=== PATIENT | male | born 1955 | race Caucasian/White ===

== ENCOUNTER 2021-06-18 06:35 | Inpatient (IN) | payer BC ==
[2021-06-18] MEDS ORDERED: Povidone-Iodine 10% Soln 118.25 ML Bottle ONE (07:04)
[2021-06-18] MEDS: Nozin Nasal Sanitizer NASBOTH SCH ×3 (07:10→21:58)
[2021-06-18] MEDS ORDERED: Lactated Ringers 1,000 ML IV SCH (07:30)
[2021-06-18] MEDS ORDERED: Midazolam 1 MG/ML 2 ML SDV ONE (07:38)
[2021-06-18] MEDS ORDERED: fentaNYL 100 MCG/2 ML SDV ONE ×2 (07:38→09:19)
[2021-06-18] MEDS ORDERED: Propofol 200 MG/20 ML SDV ONE ×2 (07:38→09:40)
[2021-06-18] MEDS ORDERED: ceFAZolin 2 GM in Premix Bag 1 BAG IV ONE (08:30)
[2021-06-18] MEDS ORDERED: Lactated Ringers 1,000 ML ONE (08:53)
[2021-06-18] MEDS ORDERED: Ondansetron 4 MG/2 ML SDV IVPUSH PRN (10:38)
[2021-06-18] MEDS ORDERED: traMADol 50 MG Tab PO PRN (10:38)
[2021-06-18] MEDS ORDERED: ceFAZolin 1 GM in Sodium Chloride 0.9% 50 ML IV SCH (10:45)
[2021-06-18] MEDS ORDERED: Acetaminophen 325 MG Tab PO SCH ×2 (10:45→11:45)
--- NOTE | 2021-06-18 11:45 | OR ---
DATE OF PROCEDURE: 06/18/2021 SURGEON: Nickolas Weaver MD PREOPERATIVE DIAGNOSIS: Osteoarthritis, left knee. POSTOPERATIVE DIAGNOSIS: Osteoarthritis, left knee. PROCEDURE PERFORMED: Left total knee arthroplasty using Yoel Persona components with a size 9 femur, F tibia, 10 mm polyethylene, and 35 mm patella. [employer] SPECIALIST: JOEY Brower ANESTHESIA: Spinal with sedation. INDICATIONS: Mateusz is a very pleasant 66-year-old gentleman with a history of progressive pain in both knees over the past year. He has failed conservative treatment. X-rays reveal osteoarthritis, particularly in patellofemoral joints bilaterally. Presents for a total knee arthroplasty. Risks, benefits, potential complications of the procedure were discussed. DESCRIPTION OF PROCEDURE: After adequate anesthesia was obtained, patient was placed supine with a tourniquet about the left upper thigh. Left leg was prepped and draped in a sterile fashion. Leg was exsanguinated and tourniquet inflated to 250 mmHg pressure. Incision was made over the anterior aspect of the knee, carried down through the subcutaneous tissues, and hemostasis was obtained with electrocautery. Medial parapatellar arthrotomy was performed. Patella was partially everted, revealing complete loss of articular cartilage of patella with a large flap of delaminated cartilage superolaterally. The posterior aspect of the patella was resected with an oscillating saw. Medial release was performed, knee was flexed, and the intramedullary canal drilled. Intramedullary guide was placed and distal femur was cut. Extramedullary tibial guide was placed, aligned and secured to the tibia. The tibia was resected with an oscillating saw. Medial and lateral menisci were excised. The femur was sized to a 9 component. The 9 cutting jig was secured to the distal femur, femoral cuts were made. Jig was removed and the 9 trial was placed. Intercondylar notch was cut for a posterior cruciate-sacrificing component. Peg holes were drilled. Tibia was sized to an F component and a 10 mm insert was placed. The patella was sized to 35, drilled and the trial placed with excellent tracking. Trial components were removed. Tibial preparation was completed and the knee was thoroughly irrigated with the pulse lavage. Bone surfaces were dried. The patient did have fairly dense sclerotic bone and additional drill holes were made in the tibial plateau for cement penetration. Components were cemented in place, excess cement was removed, and the knee was held in full extension with a 10 mm insert as cement cured. The knee was again taken through range of motion, had full extension, excellent flexion, and excellent patellar tracking with very good balance in flexion and extension. The trial was removed, the knee was irrigated, and the final polyethylene was snapped into position. Knee was irrigated once again followed by a dilute Betadine solution was left in place for 2-1/2 minutes. This was irrigated with pulse lavage. The tourniquet was released and bleeding controlled with electrocautery. Capsule was closed with #2 Ethibond in intermittent fashion. Skin closed with 2-0 Vicryl and running 3-0 Monocryl. Steri-Strips were applied. Sterile dressing was placed with a light compressive dressing. The patient tolerated procedure very well. There were no complications. Taken from the operating room in stable condition. Nickolas Weaver MD /[id number]
[2021-06-18] MEDS: oxyCODONE 5 MG Tab PO PRN ×2 (11:50→15:55)
[2021-06-18] MEDS: Ketorolac 30 MG/ML SDV IVPUSH PRN (12:27)
[2021-06-18] MEDS: Sodium Chloride 0.9% 1,000 ML IV SCH ×2 (13:34→22:06)
--- NOTE | 2021-06-18 13:48 | CR ---
Knee 1V or 2V Lt CLINICAL HISTORY: Knee arthroplasty FINDINGS: Patient is status post recent total knee arthroplasty. Components appear well seated. There is intra-articular and subcutaneous air. Impression: Status post left knee arthroplasty
[2021-06-18] MEDS: Morphine 2 MG/ML SYRINGE IVPUSH PRN ×5 (14:46→23:49)
[2021-06-18] MEDS: ceFAZolin 1 GM in Premix Bag 1 BAG IV SCH ×2 (15:56→23:50)
[2021-06-18] MEDS: Acetaminophen 325 MG Tab PO SCH ×2 (17:50→23:50)
[2021-06-18] MEDS ORDERED: Nozin Nasal Sanitizer NASBOTH SCH (21:00)
[2021-06-18] MEDS ORDERED: Gabapentin 300 MG Cap PO SCH (21:00)
[2021-06-18] MEDS ORDERED: Docusate Sodium 100 MG Cap PO SCH (21:00)
[2021-06-18] MEDS ORDERED: Tamsulosin 0.4 MG Cap.ER PO SCH (21:00)
[2021-06-18] MEDS: Acetaminophen/HYDROcodone 325-5 MG Tab PO PRN (21:57)
[2021-06-18] MEDS: Docusate Sodium 100 MG Cap PO SCH (21:58)
[2021-06-18] MEDS: Tamsulosin 0.4 MG Cap.ER PO SCH (21:59)
[2021-06-18] MEDS: Gabapentin 300 MG Cap PO SCH (21:59)
[2021-06-19] MEDS: Ketorolac 30 MG/ML SDV IVPUSH PRN ×2 (00:49→22:36)
[2021-06-19] MEDS: oxyCODONE 5 MG Tab PO PRN ×5 (02:41→21:15)
[2021-06-19] MEDS: Acetaminophen 325 MG Tab PO SCH ×3 (05:41→17:22)
[2021-06-19] MEDS: ceFAZolin 1 GM in Premix Bag 1 BAG IV SCH (07:32)
[2021-06-19] MEDS ORDERED: Polyethylene Glycol 3350 Powder 17 GM Packet PO PRN (08:03)
--- NOTE | 2021-06-19 08:06 | PCM.SURGPN ---
- General Info Date of Service: 06/19/21 Date of Surgery/Procedure: 06/18/21 POD#: 1 Post-Op Diagnosis: left knee osteoarthritis Admission Diagnosis/Problem: Knee joint operation Functional Status: Reports: Tolerating Diet, Incentive Spirometry - Review of Systems General: Denies: Fatigue, Chills HEENT: Denies: Visual Changes Pulmonary: Denies: Shortness of Breath Cardiovascular: Denies: Chest Pain, Lightheadedness Gastrointestinal: Denies: Nausea, Vomiting Musculoskeletal: Reports: Leg Pain (left ), Joint Pain (left knee ), Joint Swelling (left knee ) Skin: Reports: Bruising Neurological: Reports: No Symptoms Psychiatric: Reports: No Symptoms - Patient Data Vitals - Most Recent: Last Vital Signs Temp 99.5 F 06/19/21 07:00 Pulse 95 06/19/21 07:00 Resp 18 06/19/21 07:00 BP 110/70 06/19/21 07:00 Pulse Ox 98 06/19/21 07:00 Weight - Most Recent: 191 lb 8 oz I&O - Last 24 Hours: Intake & Output 06/18/21 06/19/21 06/19/21 22:59 06:59 14:59 Intake Total 1127 Output Total 1375 2250 100 Balance -248 -2250 -100 Lab Results Last 24 Hrs: Laboratory Results - last 24 hr 06/19/21 Range/Units 05:45 WBC 10.7 (4.5-11.0) K/uL RBC 4.02 L (4.30-5.90) M/uL Hgb 12.1 D (12.0-15.0) g/dL Hct 35.6 L (40.0-54.0) % MCV 89 (80-98) fL MCH 30 (27-31) pg MCHC 34 (32-36) % Plt Count 212 (150-400) K/uL Med Orders - Current: Current Medications Acetaminophen (Acetaminophen 325 Mg Tab) 650 mg PO Q6H [facility] Last Admin: 06/19/21 05:41 Dose: 650 mg Documented by: Hydrocodone Bitart/Acetaminophen (Acetaminophen/Hydrocodone 325-5 Mg Tab) 1 tab PO Q4H PRN PRN Reason: Pain (moderate 4-6) Last Admin: 06/18/21 21:57 Dose: 1 tab Documented by: Atorvastatin Calcium (Atorvastatin 10 Mg Tab) 10 mg PO DAILY [facility] Bandage/Support Products (Nozin Nasal Tumbler Plater) 1 applic NASBOTH BID [facility] Stop: 06/24/21 21:01 Last Admin: 06/18/21 21:58 Dose: 1 applic Documented by: Docusate Sodium (Docusate Sodium 100 Mg Cap) 100 mg PO BID [facility] Last Admin: 06/18/21 21:58 Dose: 100 mg Documented by: Enoxaparin Sodium (Enoxaparin 30 Mg/0.3 Ml Syringe) 30 mg SUBCUT DAILY [facility] Gabapentin (Gabapentin 300 Mg Cap) 300 mg PO BID [facility] Last Admin: 06/18/21 21:59 Dose: 300 mg Documented by: Sodium Chloride (Normal Saline) 1,000 mls @ 125 mls/hr IV ASDIRECTED [facility] Last Admin: 06/18/21 22:06 Dose: 125 mls/hr Documented by: Cefazolin Sodium/Dextrose 1 gm (/ Premix) 50 mls @ 100 mls/hr IV Q8H [facility] Stop: 06/19/21 08:29 Last Admin: 06/19/21 07:32 Dose: 100 mls/hr Documented by: Ketorolac Tromethamine (Ketorolac 30 Mg/Ml Sdv) 15 mg IVPUSH Q8H PRN PRN Reason: Breakthrough Pain Stop: 06/23/21 10:39 Last Admin: 06/19/21 00:49 Dose: 15 mg Documented by: Morphine Sulfate (Morphine 2 Mg/Ml Syringe) 1 mg IVPUSH Q1H PRN PRN Reason: Breakthrough Pain Last Admin: 06/18/21 23:49 Dose: 1 mg Documented by: Ondansetron HCl (Ondansetron 4 Mg/2 Ml Sdv) 4 mg IVPUSH Q4H PRN PRN Reason: Nausea/Vomiting Oxycodone HCl (Oxycodone 5 Mg Tab) 5 - 10 mg PO Q4H PRN PRN Reason: Pain (severe 7-10) Last Admin: 06/19/21 07:32 Dose: 10 mg Documented by: Polyethylene Glycol (Polyethylene Glycol 3350 Powder 17 Gm Packet) 17 gm PO DAILY PRN PRN Reason: Constipation Tamsulosin HCl (Tamsulosin 0.4 Mg Cap.Er) 0.4 mg PO BEDTIME [facility] Last Admin: 06/18/21 21:59 Dose: 0.4 mg Documented by: Tramadol HCl (Tramadol 50 Mg Tab) 50 mg PO Q4H PRN PRN Reason: Pain (mild 1-3) Discontinued Medications Acetaminophen (Acetaminophen 325 Mg Tab) 650 mg PO Q6H [facility] Last Admin: 06/18/21 13:37 Dose: Not Given Documented by: Acetaminophen (Acetaminophen 325 Mg Tab) 650 mg PO Q6H [facility] Last Admin: 06/18/21 11:50 Dose: 650 mg Documented by: Docusate Sodium (Docusate Sodium 100 Mg Cap) 100 mg PO BID [facility] Enoxaparin Sodium (Enoxaparin 30 Mg/0.3 Ml Syringe) 30 mg SUBCUT DAILY [facility] Fentanyl (Fentanyl 100 Mcg/2 Ml Sdv) Confirm Administered Dose 100 mcg .ROUTE .STK-MED ONE Stop: 06/18/21 07:39 Fentanyl (Fentanyl 100 Mcg/2 Ml Sdv) Confirm Administered Dose 100 mcg .ROUTE .STK-MED ONE Stop: 06/18/21 09:20 Gabapentin (Gabapentin 300 Mg Cap) 300 mg PO BID [facility] Lactated Ringer's (Ringers, Lactated) 1,000 mls @ 75 mls/hr IV ASDIRECTED [facility] Last Admin: 06/18/21 07:12 Dose: 75 mls/hr Documented by: Cefazolin Sodium/Dextrose 2 gm (/ Premix) 50 mls @ 100 mls/hr IV ONETIME ONE Stop: 06/18/21 08:59 Last Admin: 06/18/21 08:29 Dose: 100 mls/hr Documented by: Lactated Ringer's (Ringers, Lactated) Confirm Administered Dose 1,000 mls @ as directed .ROUTE .STK-MED ONE Stop: 06/18/21 08:54 Cefazolin Sodium 1 gm/ Sodium (Chloride) 50 mls @ 200 mls/hr IV Q8H [facility] Stop: 06/19/21 02:59 Last Admin: 06/18/21 13:37 Dose: Not Given Documented by: Midazolam HCl (Midazolam 1 Mg/Ml 2 Ml Sdv) Confirm Administered Dose 2 mg .ROUTE .STK-MED ONE Stop: 06/18/21 07:39 Non-Formulary Medication (Simvastatin [Simvastatin]) 10 mg PO DAILY [facility] Povidone Iodine (Povidone-Iodine 10% Soln 118.25 Ml Bottle) Confirm Administered Dose 1 ml .ROUTE .STK-MED ONE Stop: 06/18/21 07:05 Propofol (Propofol 200 Mg/20 Ml Sdv) Confirm Administered Dose 200 mg .ROUTE .STK-MED ONE Stop: 06/18/21 07:39 Propofol (Propofol 200 Mg/20 Ml Sdv) Confirm Administered Dose 200 mg .ROUTE .STK-MED ONE Stop: 06/18/21 09:41 Tamsulosin HCl (Tamsulosin 0.4 Mg Cap.Er) 0.4 mg PO BEDTIME [facility] - Exam Wound/Incisions: Healing Well, Dressing Dry and Intact, No Drainage Quality Assessment: Urine Catheter, DVT Prophylaxis General: Alert, Oriented, Cooperative, No Acute Distress Extremities: No Pedal Edema, Normal Capillary Refill, Joint Swelling (left knee ), Leg Pain (left ), Limited Range of Motion (due to postoperative left knee dressing, swelling, and pain ). No: Park's Sign Skin: Ecchymosis Neurological: No New Focal Deficit Psy/Mental Status: Alert, Normal Affect, Normal Mood Sepsis Event Note - Evaluation Sepsis Screening Result: No Definite Risk - Focused Exam Vital Signs: Vital Signs Temp Temp Pulse Resp BP Pulse Ox 06/19/21 07:00 99.5 F 95 18 110/70 98 06/19/21 02:50 99.2 F 104 H 16 124/81 98 06/18/21 23:50 100.7 F H 06/18/21 21:54 100.0 F 102 H 16 131/72 99 - Problem List & Annotations (1) Status post total left knee replacement SNOMED Code(s): 9803605310998, 3994380693850 Code(s): Z96.652 - PRESENCE OF LEFT ARTIFICIAL KNEE JOINT Status: Acute Current Visit: Yes - Problem List Review Problem List Initiated/Reviewed/Updated: Yes - My Orders Last 24 Hours: Active Orders 24 hr Category Date Time Status Patient Status [ADT] Routine ADT 06/18/21 10:38 Active Ambulate [RC] QID Care 06/18/21 10:38 Active Antiembolic Devices [RC] .Routine Care 06/18/21 10:38 Active Head of Bed Elevation [RC] ASDIRECTED Care 06/18/21 10:38 Active Intake and Output [RC] QSHIFT Care 06/18/21 10:38 Active May Shower [RC] ASDIRECTED Care 06/18/21 10:38 Active Neurovascular Check [RC] Q4H Care 06/18/21 10:38 Active Oxygen Therapy [RC] PRN Care 06/18/21 10:38 Active RT Incentive Spirometry [RC] Q1HWA Care 06/18/21 10:38 Active Up to Chair [RC] QID Care 06/18/21 10:38 Active VTE/DVT Education [RC] Click to Edit Care 06/18/21 10:38 Active Wound Care [RC] Q12H Care 06/18/21 10:38 Active Consult to Case Management/Federal Judge [CONS] Cons 06/18/21 10:38 Active Routine OT Evaluation and Treatment [CONS] Routine Cons 06/18/21 10:38 Active PT Evaluation and Treatment [CONS] Routine Cons 06/18/21 10:38 Active PT Evaluation and Treatment [CONS] Routine Cons 06/18/21 10:38 Active Regular Diet [DIET] Diet 06/18/21 Breakfast Active Acetaminophen [TylenoL] Med 06/18/21 18:00 Active 650 mg PO Q6H Acetaminophen/HYDROcodone [[place] 325-5 MG] Med 06/18/21 10:43 Active 1 tab PO Q4H PRN Docusate Sodium [Colace] Med 06/18/21 21:00 Active 100 mg PO BID Enoxaparin [Lovenox] Med 06/19/21 09:00 Active 30 mg SUBCUT DAILY Gabapentin [Neurontin] Med 06/18/21 21:00 Active 300 mg PO BID Ketorolac [Toradol] Med 06/18/21 10:38 Active 15 mg IVPUSH Q8H PRN Morphine Med 06/18/21 10:38 Active 1 mg IVPUSH Q1H PRN Nozin [ Nasal Tumbler Plater] Med 06/18/21 07:30 Active 1 applic NASBOTH BID Ondansetron [Zofran] Med 06/18/21 10:38 Active 4 mg IVPUSH Q4H PRN Sodium Chloride 0.9% [Normal Saline] 1,000 ml Med 06/18/21 10:45 Active IV ASDIRECTED Tamsulosin [Flomax] Med 06/18/21 21:00 Active 0.4 mg PO BEDTIME atorvaSTATin [Lipitor] Med 06/19/21 09:00 Active 10 mg PO DAILY ceFAZolin [Ancef] 1 gm Med 06/18/21 16:00 Active Premix Bag 1 bag IV Q8H oxyCODONE Med 06/18/21 10:43 Active 5 - 10 mg PO Q4H PRN polyethylene glycoL 3350 [MiraLAX] Med 06/19/21 08:03 Ordered 17 gm PO DAILY PRN traMADol [Ultram] Med 06/18/21 10:38 Active 50 mg PO Q4H PRN Antiembolic Hose [OM.PC] Routine Oth 06/18/21 10:38 Ordered DVT/VTE Prophylaxis Reflex [OM.PC] Routine Oth 06/18/21 10:38 Ordered Ice Therapy [OM.PC] Per Unit Routine Oth 06/18/21 10:38 Ordered Medication Continuation Instructions [OM.PC] Per Unit Oth 06/18/21 10:38 Ordered Routine Oral Care [OM.PC] Routine Oth 06/18/21 10:38 Ordered Sequential Compression Device [OM.PC] Routine Oth 06/18/21 10:38 Ordered Weight bearing status [OM.PC] Routine Oth 06/18/21 10:47 Ordered Resuscitation Status Routine Resus Stat 06/18/21 10:38 Ordered Medication Orders Acetaminophen (Acetaminophen 325 Mg Tab) 650 mg PO Q6H [facility] Last Admin: 06/19/21 05:41 Dose: 650 mg Documented by: Admin: 06/18/21 23:50 Dose: 650 mg Documented by: Admin: 06/18/21 17:50 Dose: 650 mg Documented by: ADRIANA Hydrocodone Bitart/Acetaminophen (Acetaminophen/Hydrocodone 325-5 Mg Tab) 1 tab PO Q4H PRN PRN Reason: Pain (moderate 4-6) Last Admin: 06/18/21 21:57 Dose: 1 tab Documented by: SANDRA Atorvastatin Calcium (Atorvastatin 10 Mg Tab) 10 mg PO DAILY [facility] Bandage/Support Products (Nozin Nasal Tumbler Plater) 1 applic NASBOTH BID [facility] Stop: 06/24/21 21:01 Last Admin: 06/18/21 21:58 Dose: 1 applic Documented by: Admin: 06/18/21 11:43 Dose: Not Given Documented by: Admin: 06/18/21 07:10 Dose: 1 applic Documented by: [id number] Docusate Sodium (Docusate Sodium 100 Mg Cap) 100 mg PO BID [facility] Last Admin: 06/18/21 21:58 Dose: 100 mg Documented by: SANDRA Enoxaparin Sodium (Enoxaparin 30 Mg/0.3 Ml Syringe) 30 mg SUBCUT DAILY [facility] Gabapentin (Gabapentin 300 Mg Cap) 300 mg PO BID [facility] Last Admin: 06/18/21 21:59 Dose: 300 mg Documented by: SANDRA Sodium Chloride (Normal Saline) 1,000 mls @ 125 mls/hr IV ASDIRECTED [facility] Last Admin: 06/18/21 22:06 Dose: 125 mls/hr Documented by: Infusion: 06/18/21 21:34 Dose: 125 mls/hr Documented by: Admin: 06/18/21 13:34 Dose: 125 mls/hr Documented by: RAO Cefazolin Sodium/Dextrose 1 gm (/ Premix) 50 mls @ 100 mls/hr IV Q8H [facility] Stop: 06/19/21 08:29 Last Admin: 06/19/21 07:32 Dose: 100 mls/hr Documented by: Infusion: 06/19/21 00:20 Dose: 100 mls/hr Documented by: Admin: 06/18/21 23:50 Dose: 100 mls/hr Documented by: Infusion: 06/18/21 16:26 Dose: 100 mls/hr Documented by: Admin: 06/18/21 15:56 Dose: 100 mls/hr Documented by: ADRIANA Ketorolac Tromethamine (Ketorolac 30 Mg/Ml Sdv) 15 mg IVPUSH Q8H PRN PRN Reason: Breakthrough Pain Stop: 06/23/21 10:39 Last Admin: 06/19/21 00:49 Dose: 15 mg Documented by: Admin: 06/18/21 12:27 Dose: 15 mg Documented by: ADRIANA Morphine Sulfate (Morphine 2 Mg/Ml Syringe) 1 mg IVPUSH Q1H PRN PRN Reason: Breakthrough Pain Last Admin: 06/18/21 23:49 Dose: 1 mg Documented by: Admin: 06/18/21 19:32 Dose: 1 mg Documented by: SANDRA Sigala: 06/18/21 17:49 Dose: 1 mg Documented by: Admin: 06/18/21 16:51 Dose: 1 mg Documented by: Admin: 06/18/21 14:46 Dose: 1 mg Documented by: ADRIANA Ondansetron HCl (Ondansetron 4 Mg/2 Ml Sdv) 4 mg IVPUSH Q4H PRN PRN Reason: Nausea/Vomiting Oxycodone HCl (Oxycodone 5 Mg Tab) 5 - 10 mg PO Q4H PRN PRN Reason: Pain (severe 7-10) Last Admin: 06/19/21 07:32 Dose: 10 mg Documented by: Admin: 06/19/21 02:41 Dose: 10 mg Documented by: Admin: 06/18/21 15:55 Dose: 10 mg Documented by: Admin: 06/18/21 11:50 Dose: 5 mg Documented by: ADRIANA Polyethylene Glycol (Polyethylene Glycol 3350 Powder 17 Gm Packet) 17 gm PO DAILY PRN PRN Reason: Constipation Tamsulosin HCl (Tamsulosin 0.4 Mg Cap.Er) 0.4 mg PO BEDTIME [facility] Last Admin: 06/18/21 21:59 Dose: 0.4 mg Documented by: SANDRA Tramadol HCl (Tramadol 50 Mg Tab) 50 mg PO Q4H PRN PRN Reason: Pain (mild 1-3) - Assessment Assessment (Free Text/Narrative):: Patient is a pleasant 66-year-old gentleman, status post left total knee arthroplasty, postop day #1. Patient tolerated surgery well with no complications. Patient has remained hemodynamically stable thus far in the postoperative period with no acute events overnight. Postoperative day #1 hemoglobin stable at 12.1. Patient endorsed feeling febrile last evening, highest documented temperature at 100.7F. Temperatures are trending down and patient denied feeling febrile this morning. Also denied subjective chills, m alaise, shortness of breath, nor chest pain. Has been using incentive spirometer frequently. Patient had a difficult time with pain control in the postoperative period. Had difficulty sleeping last night due to pain in the left knee. Has utilized a combination of scheduled tylenol, as well as prn oral percocet, IV toradol, and IV morphine. Patient reports pain is better controlled at rest this morning than it was yesterday. Endorsed pain along left thigh near tourniquet placement; ecchymosis present along this area. Patient denied calf pain and paresthesias to left lower extremity. Participated in physical therapy yesterday evening following surgery. Ambulated 35 feet with four-wheel walker and x1 assist. Also completed range of motion and isometric exercises for LLE in bed. Has transferred from bed to chair with four-wheel walker and x1 assist with lifting left leg. Patient has been tolerating regular diet well with no nausea or emesis. Patient does endorse history of constipation with opioid medications. Has not had a bowel movement since prior to surgery. Patient requires inpatient status at this time for additional physical therapy services to progress functional mobility of left lower extremity as well as to work on stairs for safe discharge to home. Additionally, patient requires adequate pain control with only oral medications prior to discharge home. Plan: * Patient to participate in physical and occupational therapy services daily while in the hospital to progress functional mobility of LLE. May continue to WBAT on LLE. * Encouraged hourly incentive spirometer usage. * East catheter to be discontinued this morning. * Maintenance fluids to be discontinued and IV saline locked. * Continue with every 4 hours vital monitoring. * Continue with current pain regimen with goal of maintaining adequate pain control with oral medications. * Continue with 30 mg subcutaneous Lovenox daily for chemical DVT/VTE prophylaxis while inpatient and bilateral lower extremity SCDs for mechanical DVT/VTE prophylaxis. * Updated medication orders to include Miralax prn, in addition to currently scheduled BID colace. * Anticipate dressing change on postop day #2 by orthopedic provider. * Anticipate discharge to home when patient is medically stable and functional mobility of left lower extremity improves. Patient agreeable to outpatient physical therapy services at time of discharge.
[2021-06-19] MEDS ORDERED: Enoxaparin 30 MG/0.3 ML Syringe SUBCUT SCH (09:00)
[2021-06-19] MEDS ORDERED: SIMVASTATIN PO SCH (09:00)
[2021-06-19] MEDS: Enoxaparin 30 MG/0.3 ML Syringe SUBCUT SCH (09:21)
[2021-06-19] MEDS: Nozin Nasal Sanitizer NASBOTH SCH ×2 (09:21→21:15)
[2021-06-19] MEDS: Gabapentin 300 MG Cap PO SCH ×2 (09:22→21:15)
[2021-06-19] MEDS: Docusate Sodium 100 MG Cap PO SCH ×2 (09:22→21:14)
[2021-06-19] MEDS: atorvaSTATin 10 MG Tab PO SCH (09:22)
[2021-06-19] MEDS: Tamsulosin 0.4 MG Cap.ER PO SCH (21:15)
[2021-06-20] MEDS: Acetaminophen 325 MG Tab PO SCH ×3 (00:40→12:01)
[2021-06-20] MEDS: oxyCODONE 5 MG Tab PO PRN (05:08)
[2021-06-20] MEDS: Gabapentin 300 MG Cap PO SCH (09:39)
[2021-06-20] MEDS: Enoxaparin 30 MG/0.3 ML Syringe SUBCUT SCH (09:39)
[2021-06-20] MEDS: Docusate Sodium 100 MG Cap PO SCH (09:39)
[2021-06-20] MEDS: atorvaSTATin 10 MG Tab PO SCH (09:39)
[2021-06-20] MEDS: Nozin Nasal Sanitizer NASBOTH SCH (09:40)
[2021-06-20] MEDS: Acetaminophen/HYDROcodone 325-5 MG Tab PO PRN (09:45)
--- NOTE | 2021-06-20 11:56 | PCM.DCSUM1 ---
Discharge Summary - Hospital Course HPI Initial Comments: 66 y/o male with history of chronic left knee pain due to large meniscus tear and osteoarthritic changes. Failed conservative management with injections and physical therapy. Elected to undergo a left total knee arthroplasty. Surgery performed on 06/18/21 with no complications. Tolerated surgery well. Post- operative period rather uneventful, see hospital course below for full details. Diagnosis: Stroke: No Modified [place] Scale: No Symptoms at All Modified [place] Scale Score: 0 - Discharge Data Discharge Date: 06/20/21 Discharge Disposition: Home, Self-Care 01 Condition: Good - Referral to Home Health Date of Face to Face Encounter: 06/20/21 Primary Care Physician: Cruz Augustine MD - Discharge Diagnosis/Problem(s) (1) Status post total left knee replacement SNOMED Code(s): 5449692243817, [id number] ICD Code: Z96.652 - PRESENCE OF LEFT ARTIFICIAL KNEE JOINT Status: Acute Current Visit: Yes - Patient Summary/Data Operative Procedure(s) Performed: left total knee arthroplasty Consults: Consultations 06/18/21 10:38 Consult to Case Management/Thread Cutter [CONS] Routine Comment: Physician Instructions: Service(s) to be Consulted: Case Management Reason for Consult: Plan for Discharge Special Instructions: s/p L TKA. Anticipate dc to home with outpatient PT when medically stable OT Evaluation and Treatment [CONS] Routine Please Evaluate and Treat. OT Reason for Consult: ADL's Special Instructions: s/p L TKA. May WBAT This query below is only for informational purposes and is not editable. PT Evaluation and Treatment [CONS] Routine Please Evaluate and Treat. PT Reason for Consult: Post op Ortho Surgery Special Instructions: s/p L TKA. May WBAT. Progress ROM + functional mobility of LLE This query below is only for informational purposes and is not editable. PT Evaluation and Treatment [CONS] Routine Please Evaluate and Treat. PT Reason for Consult: Post op Ortho Surgery Knee Pending Discharge: Yes, 1- 2 days Special Instructions: Schedule first outpatient PT appointment in 3-5 day post discharge. This query below is only for informational purposes and is not editable. Hospital Course: Patient is a pleasant 66 y/o gentleman, status post left total knee arthroplasty, POD#2. Patient tolerated surgery well with no acute events during post-operative period. Remained hemodynamically stable throughout hospital stay. Had a few hypertensive and mild-tachycardic readings attributed to pain on POD#1, since these isolated episodes, vitals have remained within normal limits. POD#1 HgB declined to 12.1. Patient had a subjective fever the evening of surgery, denied any further fever, chills, shortness of breath, chest pain, nor lightheadedness. Used incentive spirometer daily. Had a difficult time with pain control the evening of surgery. Pain was adequately controlled with oral medications by the afternoon of POD#1 and through the remainder of stay. Patient tolerated regular diet well, denied nausea or emesis. Compliant with twice daily physical therapy and daily occupational therapy efforts. Ambulation abilities progressed nicely, walking up to 158 ft with FWW and SBA. Was able to complete 4 stairs safely. Also demonstrated AROM at knee from 4-85. Does require assistance of leg applications chemist to help transfer left leg into bed. Additionally has used sock spanish language lecturer to aid with ADLs. Otherwise fairly independent at time of discharge with transfers and ADLs. On POD#1 malcolm catheter removed, IV maintenance fluids discontinued, and dressing was changed by orthopedic provider. Patient demonstrated improved functional mobility throughout stay. Was medically stable at time of discharge to home with outpatient physical therapy services arranged. - Patient Instructions Diet: Usual Diet as Tolerated Activity: Apply Ice, Full Weight Bearing, Rest and Relax Today Driving: Do Not Drive Showering/Bathing: May Shower Wound/Incision Care: Keep Operative Site/Wound Site Clean and Dry Notify Provider of: Fever, Increased Pain, Swelling and Redness, Drainage - Discharge Plan *PRESCRIPTION DRUG MONITORING PROGRAM REVIEWED*: Yes *COPY OF PRESCRIPTION DRUG MONITORING REPORT IN PATIENT VADIM: Not Applicable Prescriptions/Med Rec: oxyCODONE 5 mg PO Q6HR PRN #40 tab PRN Reason: Pain (Severe 7-10) Home Medications: Home Meds Simvastatin 10 mg PO DAILY 05/03/20 [History] Tamsulosin HCl [Flomax] 0.4 mg PO BEDTIME 06/08/20 [History] Gabapentin [Neurontin] 300 mg PO BID 11/13/20 [History] Hydrocortisone/Pramoxine [Hydrocortisone-Pramoxine] 1 applic TOP ASDIRECTED 11/13/20 [History] [place]-3/DHA/Epa/Fish Oil [[place]-3 Fish Oil 1,000 MG Sfgl] 1 tab PO DAILY 11/13/20 [History] Magnesium Oxide [Magnesium] 1,000 mg PO DAILY 12/28/20 [History] oxyCODONE 5 mg PO Q6HR PRN #40 tab 06/20/21 [Rx] Oxygen Therapy Mode: Room Air Patient Handouts: Fall Prevention in the Home, Adult, [id number], Total Knee Replacement, Care After, [id number], Preventing Problems After Surgery, How to Prevent Constipation After Surgery Referrals: Mya Oconnell, PT [Physical Therapist] - 06/21/21 9:00 am (Please arrive 15 minutes early to register for your appointment.) Eleanor Cisneros PA [Ordering Only Provider] - 07/03/21 9:00 am (Please arrive 15 minures early to register for your appointment.) - Discharge Summary/Plan Comment DC Time >30 min.: No Total # of Minutes for Discharge Time: 15 Discharge Summary/Plan Comment: -Discharge to home with outpatient PT orders in place. May WBAT on LLE. -Prescription sent for pain control to preferred pharmacy: 5mg oxycodone, 1 tab PO q6 hrs prn for pain. Risks of respiratory depression while on this opioid medication and combining with scheduled gabapentin were reviewed with patient. He is aware of warning signs and return parameters. -Encouraged continuation of stool softener while on opioid pain medication. -Educated to take 1 aspirin BID for DVT/VTE prophylaxis. -Educated patient on warning signs of DVT/VTE and SSI; any concerns, should contact the clinic or visit local ER. -Continue with Nozin spray BID. -May shower; leave Steristrips on and let water run over the top. They will fall off in 5-7 days. Do not vigorously scrub incision, no submerging incision in bath water. -Follow up with orthopedics in 2 weeks; contact clinic with any concerns or questions that arise prior to scheduled apt - General Info Date of Service: 06/20/21 Admission Dx/Problem (Free Text: status post left total knee arthroplasty Functional Status: Reports: Pain Controlled, Tolerating Diet, Ambulating (with FWW ), Urinating - Review of Systems General: Denies: Fever, Chills Pulmonary: Denies: Shortness of Breath Cardiovascular: Denies: Chest Pain Gastrointestinal: Denies: Nausea, Vomiting Genitourinary: Denies: Dysuria Musculoskeletal: Reports: Leg Pain (left ), Joint Pain (left knee ), Joint Swelling (left knee ) Skin: Reports: Bruising Neurological: Reports: No Symptoms Psychiatric: Reports: No Symptoms - Patient Data Vitals - Most Recent: Last Vital Signs Temp 99.2 F 06/20/21 07:25 Pulse 89 06/20/21 07:25 Resp 18 06/20/21 07:25 BP 124/79 06/20/21 07:25 Pulse Ox 97 06/20/21 07:25 Weight - Most Recent: 191 lb 8 oz I&O - Last 24 hours: Intake & Output 06/19/21 06/20/21 06/20/21 22:59 06:59 14:59 Intake Total 1900 500 Output Total 2300 525 1000 Balance - Med Orders - Current: Current Medications Acetaminophen (Acetaminophen 325 Mg Tab) 650 mg PO Q6H [facility] Last Admin: 06/20/21 05:08 Dose: 650 mg Documented by: Hydrocodone Bitart/Acetaminophen (Acetaminophen/Hydrocodone 325-5 Mg Tab) 1 tab PO Q4H PRN PRN Reason: Pain (moderate 4-6) Last Admin: 06/20/21 09:45 Dose: 1 tab Documented by: Atorvastatin Calcium (Atorvastatin 10 Mg Tab) 10 mg PO DAILY [facility] Last Admin: 06/20/21 09:39 Dose: 10 mg Documented by: Bandage/Support Products (Nozin Nasal Agency Legal Counsel) 1 applic NASBOTH BID [facility] Stop: 06/24/21 21:01 Last Admin: 06/20/21 09:40 Dose: 1 applic Documented by: Docusate Sodium (Docusate Sodium 100 Mg Cap) 100 mg PO BID [facility] Last Admin: 06/20/21 09:39 Dose: 100 mg Documented by: Enoxaparin Sodium (Enoxaparin 30 Mg/0.3 Ml Syringe) 30 mg SUBCUT DAILY [facility] Last Admin: 06/20/21 09:39 Dose: 30 mg Documented by: Gabapentin (Gabapentin 300 Mg Cap) 300 mg PO BID [facility] Last Admin: 06/20/21 09:39 Dose: 300 mg Documented by: Sodium Chloride (Normal Saline) 1,000 mls @ 125 mls/hr IV ASDIRECTED [facility] Last Admin: 06/18/21 22:06 Dose: 125 mls/hr Documented by: Ketorolac Tromethamine (Ketorolac 30 Mg/Ml Sdv) 15 mg IVPUSH Q8H PRN PRN Reason: Breakthrough Pain Stop: 06/23/21 10:39 Last Admin: 06/19/21 22:36 Dose: 15 mg Documented by: Morphine Sulfate (Morphine 2 Mg/Ml Syringe) 1 mg IVPUSH Q1H PRN PRN Reason: Breakthrough Pain Last Admin: 06/18/21 23:49 Dose: 1 mg Documented by: Ondansetron HCl (Ondansetron 4 Mg/2 Ml Sdv) 4 mg IVPUSH Q4H PRN PRN Reason: Nausea/Vomiting Oxycodone HCl (Oxycodone 5 Mg Tab) 5 - 10 mg PO Q4H PRN PRN Reason: Pain (severe 7-10) Last Admin: 06/20/21 05:08 Dose: 5 mg Documented by: Polyethylene Glycol (Polyethylene Glycol 3350 Powder 17 Gm Packet) 17 gm PO DAILY PRN PRN Reason: Constipation Last Admin: 06/19/21 09:32 Dose: 17 gm Documented by: Tamsulosin HCl (Tamsulosin 0.4 Mg Cap.Er) 0.4 mg PO BEDTIME [facility] Last Admin: 06/19/21 21:15 Dose: 0.4 mg Documented by: Tramadol HCl (Tramadol 50 Mg Tab) 50 mg PO Q4H PRN PRN Reason: Pain (mild 1-3) Discontinued Medications Acetaminophen (Acetaminophen 325 Mg Tab) 650 mg PO Q6H [facility] Last Admin: 06/18/21 13:37 Dose: Not Given Documented by: Acetaminophen (Acetaminophen 325 Mg Tab) 650 mg PO Q6H [facility] Last Admin: 06/18/21 11:50 Dose: 650 mg Documented by: Docusate Sodium (Docusate Sodium 100 Mg Cap) 100 mg PO BID [facility] Enoxaparin Sodium (Enoxaparin 30 Mg/0.3 Ml Syringe) 30 mg SUBCUT DAILY [facility] Fentanyl (Fentanyl 100 Mcg/2 Ml Sdv) Confirm Administered Dose 100 mcg .ROUTE .STK-MED ONE Stop: 06/18/21 07:39 Fentanyl (Fentanyl 100 Mcg/2 Ml Sdv) Confirm Administered Dose 100 mcg .ROUTE .STK-MED ONE Stop: 06/18/21 09:20 Gabapentin (Gabapentin 300 Mg Cap) 300 mg PO BID [facility] Lactated Ringer's (Ringers, Lactated) 1,000 mls @ 75 mls/hr IV ASDIRECTED [facility] Last Admin: 06/18/21 07:12 Dose: 75 mls/hr Documented by: Cefazolin Sodium/Dextrose 2 gm (/ Premix) 50 mls @ 100 mls/hr IV ONETIME ONE Stop: 06/18/21 08:59 Last Admin: 06/18/21 08:29 Dose: 100 mls/hr Documented by: Lactated Ringer's (Ringers, Lactated) Confirm Administered Dose 1,000 mls @ as directed .ROUTE .STK-MED ONE Stop: 06/18/21 08:54 Cefazolin Sodium 1 gm/ Sodium (Chloride) 50 mls @ 200 mls/hr IV Q8H [facility] Stop: 06/19/21 02:59 Last Admin: 06/18/21 13:37 Dose: Not Given Documented by: Cefazolin Sodium/Dextrose 1 gm (/ Premix) 50 mls @ 100 mls/hr IV Q8H [facility] Stop: 06/19/21 08:29 Last Admin: 06/19/21 07:32 Dose: 100 mls/hr Documented by: Midazolam HCl (Midazolam 1 Mg/Ml 2 Ml Sdv) Confirm Administered Dose 2 mg .ROUTE .STK-MED ONE Stop: 06/18/21 07:39 Non-Formulary Medication (Simvastatin [Simvastatin]) 10 mg PO DAILY [facility] Povidone Iodine (Povidone-Iodine 10% Soln 118.25 Ml Bottle) Confirm Administered Dose 1 ml .ROUTE .STK-MED ONE Stop: 06/18/21 07:05 Propofol (Propofol 200 Mg/20 Ml Sdv) Confirm Administered Dose 200 mg .ROUTE .STK-MED ONE Stop: 06/18/21 07:39 Propofol (Propofol 200 Mg/20 Ml Sdv) Confirm Administered Dose 200 mg .ROUTE .STK-MED ONE Stop: 06/18/21 09:41 Tamsulosin HCl (Tamsulosin 0.4 Mg Cap.Er) 0.4 mg PO BEDTIME [facility] - Exam Quality Assessment: Reports: DVT Prophylaxis General: Reports: Alert, Oriented, Cooperative, No Acute Distress Extremities: Normal Capillary Refill, Joint Swelling (left knee ), Limited Range of Motion (left knee ). No: Pedal Edema, Park's Sign Skin: Reports: Dry, Intact, Ecchymosis Wound/Incisions: Reports: Healing Well, Dressing Dry and Intact, No Drainage Neurological: Reports: No New Focal Deficit Psy/Mental Status: Reports: Alert, Normal Affect, Normal Mood
== END 2021-06-20 13:15 | disposition home or self-care (01) | DRG 302 ==
LOC: JP.SDSSCHI 06:35 → JP.SDS 06:35 → EDSTATUS 07:30 → JP.MS 10:38
PROVIDERS: ADMIT Specialist; ATTEND Specialist
PROC: 0SRD0J9 Replacement of Left Knee Joint with Synthetic Substitute, Cemented, Open Approach (ICD-10-PCS; principal; 2021-06-18)
DX: M17.0 Bilateral primary osteoarthritis of knee (principal); G47.61 Periodic limb movement disorder; N40.0 Benign prostatic hyperplasia without lower urinary tract symptoms; E78.5 Hyperlipidemia, unspecified; Z88.0 Allergy status to penicillin; Z79.899 Other long term (current) drug therapy; Z98.890 Other specified postprocedural states; Z87.891 Personal history of nicotine dependence
CPT/HCPCS: 36415; 73560-26-LT; 73560-LT; 80053; 85027; 86850; 86900; 86901; 97110-GP; 97116-GP; 97140-GP; 97161-GP; 97165-GO; 97530-GP; 97535-GO; 97535-GP; A9270-GY; C1713; C1776; J0690; J1650; J1885; J2250; J2270; J2704; J3010; J7030; J7120

== ENCOUNTER 2022-06-03 07:03 | Inpatient (IN) | payer BC ==
[~2022-06-03 07:03] MED LIST: Bupivacaine 0.5% 50 ML MDV ONE; Nozin Nasal Sanitizer NASBOTH ONE
[2022-06-03] MEDS ORDERED: Propofol 200 MG/20 ML SDV ONE ×4 (07:29→11:16)
[2022-06-03] MEDS ORDERED: fentaNYL 100 MCG/2 ML SDV ONE ×3 (07:29→11:16)
[2022-06-03] MEDS ORDERED: Midazolam 1 MG/ML 2 ML SDV ONE (07:29)
[2022-06-03] MEDS ORDERED: Lactated Ringers 1,000 ML IV SCH (07:30)
[2022-06-03 07:50] LABS: ESTIMATED GFR 95 mL/min (>60)
[2022-06-03] MEDS ORDERED: Sodium Chloride 0.9% 10 ML ONE (09:37)
[2022-06-03] MEDS ORDERED: ceFAZolin 1 GM Vial ONE (09:37)
[2022-06-03] MEDS ORDERED: Lactated Ringers 1,000 ML ONE (11:16)
[2022-06-03] MEDS ORDERED: Ondansetron 4 MG/2 ML SDV IVPUSH PRN (11:34)
[2022-06-03] MEDS ORDERED: Magnesium Hydroxide 400 MG/5 ML Susp 30 ML Cup PO PRN (11:34)
[2022-06-03] MEDS ORDERED: Morphine 2 MG/ML SYRINGE IVPUSH PRN (11:34)
[2022-06-03] MEDS ORDERED: Sodium Chloride 0.9% 1,000 ML IV SCH (11:45)
[2022-06-03] MEDS ORDERED: ceFAZolin 1 GM in Sodium Chloride 0.9% 50 ML IV SCH (11:45)
[2022-06-03] MEDS: Ketorolac 30 MG/ML SDV IVPUSH SCH ×2 (13:18→20:10)
[2022-06-03] MEDS: Acetaminophen 325 MG Tab PO SCH ×3 (13:18→23:26)
[2022-06-03] MEDS: oxyCODONE 5 MG Tab PO PRN ×2 (14:07→23:27)
[2022-06-03] MEDS: traMADol 50 MG Tab PO PRN ×2 (15:49→21:42)
[2022-06-03] MEDS: ceFAZolin 1 GM in Premix Bag 1 BAG IV SCH (17:52)
[2022-06-03] MEDS: Tamsulosin 0.4 MG Cap.ER PO SCH (21:42)
[2022-06-03] MEDS: Docusate Sodium 100 MG Cap PO SCH (21:42)
[2022-06-03] MEDS: Nozin Nasal Sanitizer NASBOTH SCH (22:09)
[2022-06-03] MEDS: Gabapentin 300 MG Cap PO SCH (22:09)
[2022-06-03] MEDS: atorvaSTATin 10 MG Tab PO SCH (22:10)
[2022-06-04] MEDS: ceFAZolin 1 GM in Premix Bag 1 BAG IV SCH (02:43)
[2022-06-04] MEDS: Ketorolac 30 MG/ML SDV IVPUSH SCH ×3 (05:00→20:31)
[2022-06-04] MEDS: Acetaminophen 325 MG Tab PO SCH ×3 (05:01→17:27)
[2022-06-04] MEDS: oxyCODONE 5 MG Tab PO PRN ×5 (05:02→22:15)
[2022-06-04] MEDS: Nozin Nasal Sanitizer NASBOTH SCH ×2 (08:24→20:36)
[2022-06-04] MEDS ORDERED: Gabapentin 300 MG Cap PO SCH (09:00)
[2022-06-04] MEDS ORDERED: Psyllium Husk Powder Sugar Free 5.85 GM Packet PO SCH (09:00)
[2022-06-04] MEDS ORDERED: atorvaSTATin 10 MG Tab PO SCH (09:00)
[2022-06-04] MEDS: Docusate Sodium 100 MG Cap PO SCH ×2 (09:26→20:37)
[2022-06-04] MEDS: Enoxaparin 30 MG/0.3 ML Syringe SUBCUT SCH (09:26)
[2022-06-04] MEDS ORDERED: Psyllium Husk Powder Sugar Free 5.85 GM Packet PO ONE (17:45)
[2022-06-04] MEDS: Tamsulosin 0.4 MG Cap.ER PO SCH (20:37)
[2022-06-04] MEDS: atorvaSTATin 10 MG Tab PO SCH (20:38)
[2022-06-04] MEDS: Gabapentin 300 MG Cap PO SCH (20:38)
[2022-06-05] MEDS: Acetaminophen 325 MG Tab PO SCH ×5 (01:07→23:29)
[2022-06-05] MEDS: oxyCODONE 5 MG Tab PO PRN ×5 (04:14→21:25)
[2022-06-05] MEDS: Ketorolac 30 MG/ML SDV IVPUSH SCH (04:17)
[2022-06-05] MEDS: Nozin Nasal Sanitizer NASBOTH SCH ×2 (08:18→21:20)
[2022-06-05] MEDS: Docusate Sodium 100 MG Cap PO SCH ×2 (08:18→21:20)
[2022-06-05] MEDS: Enoxaparin 30 MG/0.3 ML Syringe SUBCUT SCH (08:18)
[2022-06-05] MEDS: Psyllium Husk Powder Sugar Free 5.85 GM Packet PO SCH (08:19)
[2022-06-05] MEDS: traMADol 50 MG Tab PO PRN ×2 (18:15→23:28)
[2022-06-05] MEDS: Tamsulosin 0.4 MG Cap.ER PO SCH (21:21)
[2022-06-05] MEDS: Gabapentin 300 MG Cap PO SCH (21:21)
[2022-06-05] MEDS: atorvaSTATin 10 MG Tab PO SCH (21:21)
[2022-06-06] MEDS: Acetaminophen 325 MG Tab PO SCH (05:15)
[2022-06-06] MEDS: oxyCODONE 5 MG Tab PO PRN ×2 (05:15→09:38)
[2022-06-06] MEDS: Docusate Sodium 100 MG Cap PO SCH (08:35)
[2022-06-06] MEDS: Enoxaparin 30 MG/0.3 ML Syringe SUBCUT SCH (08:35)
[2022-06-06] MEDS: Psyllium Husk Powder Sugar Free 5.85 GM Packet PO SCH (08:36)
[2022-06-06] MEDS: Nozin Nasal Sanitizer NASBOTH SCH (08:36)
== END 2022-06-06 12:13 | disposition home or self-care (01) | DRG 302 ==
LOC: JP.SDS 07:03 → JP.MS 11:34 → JP.SDS 06-04 11:29 → JP.MS 06-04 11:30 → JP.SDS 06-05 08:19 → JP.MS 06-05 08:19 → UNDOADMIN 06-05 08:20 → UNDODISIN 06-06 11:50
PROVIDERS: ADMIT Specialist; ATTEND Specialist
PROC: 0SRC0J9 Replacement of Right Knee Joint with Synthetic Substitute, Cemented, Open Approach (ICD-10-PCS; principal; 2022-06-03)
DX: M17.11 Unilateral primary osteoarthritis, right knee (principal); Z88.0 Allergy status to penicillin; Z90.89 Acquired absence of other organs; N40.0 Benign prostatic hyperplasia without lower urinary tract symptoms
CPT/HCPCS: 36415; 73560-RT; 80053; 85025; 93005; 97110-GP; 97116-GP; 97140-GP; 97161-GP; 97530-GP; 97535-GP; A9270-GY; C1713; C1776; J0690; J1650; J1885; J2250; J2270; J2704; J3010; J3490; J7030; J7120

== ENCOUNTER 2024-12-08 07:52 | Day surgery (SDC) | payer MEDICARE, BC ==
[~2024-12-08 07:52] MED LIST changes: -Bupivacaine 0.5% 50 ML MDV ONE; +Dexamethasone 4 MG/ML SDV ONE; -Nozin Nasal Sanitizer NASBOTH ONE; +Ondansetron 4 MG/2 ML SDV ONE; +Propofol 200 MG/20 ML SDV ONE; +fentaNYL 250 MCG/5 ML SDV ONE
[2024-12-08] MEDS: Lactated Ringers 1,000 ML IV SCH (08:18)
[2024-12-08 08:20] LABS: BASOPHILS ABSOLUTE AUTO 0.04 K/uL (0.00-0.10); BASOPHILS PERCENT AUTO 0.6 % (0.1-1.3); EOSINOPHILS ABSOLUTE AUTO 0.08 K/uL (0.00-0.40); EOSINOPHILS PERCENT AUTO 1.2 % (0.0-5.4); HEMATOCRIT 39.7 % (38.4-49.7); HEMOGLOBIN 12.9 g/dL (12.9-16.9); IMMATURE GRAN PERCENT AUTO 0.3 % (0.0-0.7); LYMPHOCYTES ABSOLUTE AUTO 1.74 K/uL (0.8-3.3); LYMPHOCYTES PERCENT AUTO 25.8 % (11.4-47.7); MEAN CORPUSCULAR HGB CONC 32.5 g/dL (31.6-35.5); MEAN CORPUSCULAR VOLUME 95.4 fL (81.4-99.0); MONOCYTES ABSOLUTE AUTO 0.58 K/uL (0.20-0.90); MONOCYTES PERCENT AUTO 8.6 % (3.3-12.6); NEUTROPHILS ABSOLUTE AUTO 4.29 K/uL (1.0-7.6); NEUTROPHILS PERCENT AUTO 63.5 % (40.0-78.1); PLATELET COUNT,PLT 345 K/uL (130-375); RED BLOOD CELL COUNT 4.16 M/uL (4.14-5.76); WHITE BLOOD CELL COUNT,WBC 6.8 K/uL (3.2-11.0)
[2024-12-08 08:23] LABS: IMMATURE GRAN ABSOLUTE AUTO 0.02 K/uL (0.00-0.23)
[2024-12-08] MEDS: Nozin Nasal Sanitizer NASBOTH ONE (08:33)
[2024-12-08 08:40] LABS: A/G RATIO 0.6 (1.2-2.2); ALANINE AMINOTRANSFERASE,ALT 166 U/L (12-78); ALBUMIN 3.1 g/dL (3.4-5.0); ALKALINE PHOSPHATASE 400 U/L (46-116); ASPARTATE AMNIOTRANSFERASE,AST 47 U/L (15-37); BILIRUBIN TOTAL 0.5 mg/dL (0.2-1.0); BLOOD UREA NITROGEN,BUN 16 mg/dL (7-18); CALCIUM 9.6 mg/dL (8.5-10.1); CARBON DIOXIDE,CO2 26 mmol/L (21-32); CHLORIDE,CL 101 mmol/L (100-108); CREATININE 0.9 mg/dL (0.8-1.3); ESTIMATED GFR 94 mL/min (>60); GLUCOSE RANDOM 87 mg/dL (74-106); POTASSIUM,K 4.5 mmol/L (3.6-5.2); PROTEIN TOTAL,TP 8.2 g/dL (6.4-8.2); SODIUM,NA 139 mmol/L (140-148)
[2024-12-08 08:41] LABS: ANION GAP 16.5 mmol/L (5.0-14.0)
[2024-12-08] MEDS: ceFAZolin 2 GM in Premix Bag 1 BAG IV ONE (09:16)
[2024-12-08] MEDS ORDERED: Midazolam 1 MG/ML 2 ML SDV ONE (09:21)
[2024-12-08] MEDS: Bupivacaine 0.5% 50 ML MDV ONE (09:49)
[2024-12-08] MEDS ORDERED: Ketorolac 30 MG/ML SDV ONE (10:01)
[2024-12-08] MEDS ORDERED: fentaNYL 100 MCG/2 ML SDV ONE (10:02)
[2024-12-08] MEDS: Acetaminophen/HYDROcodone 325-5 MG Tab PO PRN (11:29)
== END 2024-12-08 12:50 | disposition home or self-care (01) ==
LOC: JP.SDS 07:52
PROVIDERS: ATTEND Specialist
DX: M65.161 Other infective (teno)synovitis, right knee (principal); M25.861 Other specified joint disorders, right knee; M25.061 Hemarthrosis, right knee; M65.88 Other synovitis and tenosynovitis, other site; Z88.0 Allergy status to penicillin; Z91.048 Other nonmedicinal substance allergy status
CPT/HCPCS: 29875; 36415; 80053; 85025; A9270; J0665; J0690; J1100; J1885; J2250; J2405; J2704; J3010; J7120